=== PATIENT | female | born 2005 | race Caucasian/White ===

== ENCOUNTER 2024-01-22 09:59 | Emergency (ER) | payer OTHER ==
--- NOTE | 2024-01-22 10:01 | ERPHSYRPT ---
- History of Present Illness Time Seen by Provider: 01/22/24 10:01 Source: patient Exam Limitations: no limitations Physician History: This is a 18-year-old white female patient who presents with an area of tenderness and "bleeding" in the midline above her anus that began yesterday and has been intermittently present since that time. She felt a tear sensation yesterday. The drainage has been intermittently present since yesterday. She has not had fevers. She has no vaginal bleeding she has no rectal bleeding. Hurts worse to sit down Timing/Duration: yesterday Activites at Onset: none Quality: aching Onset Location: other (Above the anus in the midline) Severity of Pain-Max: moderate Severity of Pain-Current: mild Prior abdominal problems: none Sexual intercourse history: non-contributory Modifying Factors: Improves With: other (Hurts worse to sit down) Associated Symptoms: denies symptoms Home Medications: Bupropion HCl Xl 150 mg [Wellbutrin XL 150 MG] 150 mg PO DAILY 01/22/24 [History] Travel Risk - International Travel Have you traveled outside of the country in past 3 weeks: No - Emerging Infectious Disease Are you exhibiting symptoms associated with any current EIDs: No - Review of Systems Constitutional: No Symptoms Eyes: No Symptoms Ears, Nose, & Throat: No Symptoms Respiratory: No Symptoms Cardiac: No Symptoms Abdominal/Gastrointestinal: No Symptoms Genitourinary Symptoms: No Symptoms Musculoskeletal: No Symptoms Skin: Other (Drainage from the hole cranial to the anus midline) Neurological: No Symptoms Psychological: No Symptoms Endocrine: No Symptoms Hematologic/Lymphatic: No Symptoms Immunological/Allergic: No Symptoms All Other Systems: Reviewed and Negative - Past Medical History Pertinent Past Medical History: No - Physical Exam General Appearance: no apparent distress, alert, anxiety, obese Eye Exam: PERRL/EOMI, eyes nml inspection Ears, Nose, Throat Exam: normal ENT inspection, moist mucous membranes Neck Exam: normal inspection, non-tender, supple, full range of motion Respiratory Exam: airway intact, No chest tenderness, No respiratory distress Gastrointestinal/Abdomen Exam: soft, normal bowel sounds, No tenderness Pelvic Exam: not done Rectal Exam: other (Hair pit with serosanguineous drainage from a tender site cranial to the anus in the midline) Back Exam: normal inspection, normal range of motion, CVA tenderness Extremity Exam: normal inspection, normal range of motion, pelvis stable Neurologic Exam: alert, oriented x 3, cooperative, 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, normal mood/affect, nml cerebellar function, nml station & gait, sensation nml Skin Exam: normal color, warm, dry Lymphatic Exam: No adenopathy SpO2 Interpretation: normal O2 Delivery: Room Air - Course Nursing assessment & vital signs reviewed: Yes - Progress Progress: unchanged Air Movement: good Progress Note: 01/22/24 10:24 My medical decision making and the assignment of low medical complexity to this patient's medical issue today is based on review the patient's past medical history, review the patient's medication list, review patient drug allergy list, history present illness and physical findings on examination. The patient does not require any laboratory radiographic studies. Differential diagnosis includes but not limited to pilonidal cyst, cellulitis Blood Culture(s) Obtained: No Counseled pt/family regarding: diagnosis, need for follow-up Medical Desision Making - Independent Historian Additional History obtained from: Mother - Diagnostic Testing Diagnostic test were ordered, analyzed, and reviewed by me: No - Risk of complications The pt has a mod risk of morbidity or mortality based on: Need for prescription drug management - Departure Departure Disposition: Home Clinical Impression: Pilonidal cyst without abscess Condition: Stable Critical Care Time: No Referrals: SAMMI HALE PA [Primary Care Provider] - Follow up/PCP as directed Additional Instructions: Keep this site free of hair. Wash the site with antibacterial soap twice a day. Compress the site and keep the site free of fluid internally. Call your primary care provider today, 01/22/2024, for referral to a general surgeon for further evaluation and management. Take your antibiotics as prescribed. Use Tylenol and ibuprofen for pain control. Prescriptions: Smz/Tmp Ds Tablet [Bactrim Ds Tablet] 1 udtab PO BID #14 tablet
[2024-01-22 10:20] VITALS: BP 151/104; PULSE 98; TEMP 98.1; O2SAT 96
== END 2024-01-22 10:29 | disposition home or self-care (01) ==
LOC: ED 09:59
DX: L05.91 Pilonidal cyst without abscess (principal); Z79.899 Other long term (current) drug therapy
CPT/HCPCS: 99281